=== PATIENT | female | born 1990 | race Caucasian/White ===

== ENCOUNTER 2020-07-12 03:36 | Emergency (ER) | payer OTHER, SELFPAY ==
[2020-07-12] VITALS (7 sets, daily range): BP systolic 114–129; BP diastolic 61–96; PULSE 72–105; RESP 16–18; TEMP 36.6–37.3; O2SAT 95–100
--- NOTE | ~2020-07-12 | XR_ITS ---
EXAMINATION: XR chest 1V portable EXAM DATE: 07/12/2020 04:59 INDICATION: Aspiration . TECHNIQUE: Portable AP frontal chest x-ray was obtained. There is no prior study for comparison. FINDINGS: The lungs are clear. There are no pleural effusions. The cardiomediastinal silhouette is within normal limits. There is no pneumothorax suspected. The bones and soft tissues are unremarkab le. IMPRESSION: Normal chest x-ray exam. Reviewed, dictated and finalized at location A. KING UNIT ASSEMBLER IMPRESSION: Normal chest x-ray exam.
--- NOTE | ~2020-07-12 | CT_ITS ---
EXAMINATION: CT brain wo con DATE: 07/12/2020 15:16 INDICATION: Confusion. Dizziness. TECHNIQUE: Computed tomography (CT) of the head was performed without intravenous contrast. The mA wa s adjusted according to patient size. Iterative reconstruction technique was employed. The dose-lengt h product was 605.33 mGy-cm. COMPARISON: None FINDINGS: There is no intracranial hemorrhage, acute infarction, or abnormal intracranial mass lesion . The ventricles are normal in size. The orbits are normal. The paranasal sinuses are clear. The mast oid air cells are normal. IMPRESSION: 1. Normal brain. Reviewed, dictated and finalized at location B. ECT MANAGER/TEAM COACH IMPRESSION: 1. Normal brain.
--- NOTE | 2020-07-12 03:45 | ECG_ITS ---
Measurements Intervals [place] Rate: 112 P: 73 VT: 161 QRS: 15 QRSD: 94 T: 39 QT: 343 QTc: 470 Interpretive Statements SINUS TACHYCARDIA LOW QRS VOLTAGE IN PRECORDIAL LEADS BASELINE ARTIFACT- I, II, III, AVR, AVL, AVF, V1-V3 ABNORMAL ECG Electronically Signed On 07-12-2020 8:30:12 ROLLER TURNER by Wilson Sanford D.O.
[2020-07-12] MEDS: NALOXONE HCL INJ 2 MG/2 ML AMP IV PUSH ×2 (04:00→04:05)
--- NOTE | 2020-07-12 04:07 | ED.GENADULT ---
HPI - General Adult General Chief complaint: Overdose Stated complaint: overdose Source: patient Mode of arrival: ambulatory Limitations: no limitations History of Present Illness HPI narrative: Phyllis is a 30F with a history of psychiatric issues and previous OD that was brought in by EMS for AMS/presumed OD. She was found on the ground not responding by her outside the bathroom and EMS was called. She was given 1 dose of narcan by BLS and then ALS was called which gave her another dose. She did perk up after the second dose. At that time she started looking at EMS and grunting. In the ED she is very rigid. When yelled at she will open her eyes and follow basic commands. No further history can be obtained. Related Data Home Medications Medication Instructions Recorded Confirmed alprazolam [Xanax] See Rx Instructions .ROUTE .COMPLEX 07/12/20 07/12/20 hydrocodone-acetaminophen [Bejou] See Rx Instructions .ROUTE .COMPLEX 07/12/20 07/12/20 lamotrigine [Lamictal] See Rx Instructions .ROUTE .COMPLEX 07/12/20 07/12/20 quetiapine [Seroquel] See Rx Instructions .ROUTE .COMPLEX 07/12/20 07/12/20 Allergies Allergy/AdvReac Type Severity Reaction Status Date / Time No Known Allergies Allergy Verified 07/12/20 04:26 Review of Systems Review of Systems: ROS unobtainable: Yes unobtainable due to mental status PMFSH Social History Social History Gender identity (if verbalized by the patient): Female Exam Const: General: confusion Limitations: behavioral limitations Other: Was lying in bed very rigid with her arms flexed grunting HENMT: Other: normocephalic. Had dried vomit around her mouth and in her hair. Eyes: Other: PERRL but were sluggish Neck: Other: normal to inspection Chest: Chest palpation & inspection: normal inspection of the chest Resp: Other: CTAB Cardio: Rate: regular rate Rhythm: regular rhythm Heart sounds: no murmurs GI: GI Palp: Yes Soft to palpation and No Guarding due to palpation present (GI) Auscultation: normal bowel sounds Urinary Catheter: Urinary Catheter: patent and draining Skin: General skin exam: normal color Rashes: no rashes Neuro: Other: Only responds with grunts. Is sitting up in bed very rigid with dystonic movements. Extrem: Other: Rigid extremities. Arms flexed at 90 degrees at the elbows. Psych: Other: Just grunting and noticibly agitated. Course Course Emergency Course: Phyllis was evaluated. She was given another dose of narcan with little change. She continued to open eyes, grunt when spoken to and follow some basic commands. Labs and CXR were ordered as well as a liter of LR. EKG showed sinus tachycardia at a rate of [address] elevation/depression or ectopy. Labs showed leukocytosis at 14.5, a UA c/w UTI, lactic acid of 4.1, CK of 292, and trop of 113.7. She was given a gm of ceftriaxone for the UTI. Fluids will continue for the lactic acid and it will be rechecked in 3 hours. I suspect the minimally elevated troponin is from the mild rhabdo/struggle and overdose. the trop will also be repeated. She was placed in an ER hold with a monitor for further observation. When her AMS resolves she may need a psych consult as it is not known if this was intentional. At 530 she continued to improve. She was saying a few words. She cussed at her and took a swing at him as he consented to our medical treatment. She did not want to stay but she could not voice enough words to show she was oriented much less show she understood the consequences of leaving. Care transferred to Dr. Givens at 0700. At this time she was screaming at nursing staff cussing and trying to climb out of bed. Vital Signs Vital signs: Vital Signs Temperature 98 F 07/12/20 04:18 Pulse Rate 102 H 07/12/20 04:18 Respiratory Rate 16 07/12/20 04:18 Blood Pressure 129/80 07/12/20 04:18 Pulse Oximetr
[2020-07-12] MEDS: LACTATED RINGERS 1,000 ML 1000 ML (04:10)
[2020-07-12 04:31] LABS: Base Excess ABG -6.2 mmol/L (0-2); HCO3 ABG 18.6 mmol/L (23-29); Oxygen Content ABG 17.1 %vol (16.0-22.0); Oxygen Saturation ABG 97.2 % (95-97); Oxyhemoglobin 94.6 % (94-100); PCO2 ABG 34.6 mmHg (35-45); PO2 ABG 94.6 mmHg (80-90); Total Hemoglobin 12.8 g/dL; pH ABG 7.35 (7.35-7.45)
[2020-07-12 04:34] LABS: Basophils Absolute Auto 0.04 K/mm3 (0.00-0.10); Basophils Percent Auto 0.3 % (0.0-1.0); Hematocrit 36.3 % (35.0-49.0); Hemoglobin 11.8 g/dL (12.0-15.0); Immature Granulocyte Absolute 0.29 K/mm3 (0.00-0.00); Lymphocytes Absolute Auto 0.88 K/mm3 (1.10-4.50); Lymphocytes Percent Auto 6.1 % (18.0-42.0); Mean Corpuscular HGB Conc 32.5 g/dL (32.0-36.0); Mean Corpuscular Hemoglobin 33.4 pg (27.0-31.0); Mean Corpuscular Volume 102.8 fL (78.0-102.0); Mean Platelet Volume 8.9 fl (9.2-11.8); Monocytes Absolute Auto 0.79 K/mm3 (0.10-0.90); Monocytes Percent Auto 5.5 % (2.0-11.0); Neutrophils Absolute Auto 12.5 K/mm3 (1.7-7.2); Neutrophils Percent Auto 86.1 % (50.0-70.0); Platelet Count Result 199 K/mm3 (150-420); Red Blood Count 3.53 M/mm3 (4.20-5.40); Red Cell Distribution Width 12.7 % (11.6-14.4); White Blood Count 14.5 K/mm3 (4.8-10.8)
[2020-07-12 04:39] LABS: Add Urine Microscopic? YES; Appearance Urine Clear (Clear); Bilirubin Urine Negative (Negative); Blood Urine 3+ (Negative); Color Urine Yellow (Yellow); Glucose Urine UA 1+ (Negative); Ketones Urine Negative (Negative); Leukocyte Esterase Ur Negative (Negative); Nitrate Urine Positive (Negative); Protein Urine Negative (Negative); Urobilinogen Urine 0.2 mg/dL (0.2-1.0)
[2020-07-12 04:41] LABS: Device ROOM AIR; Modified Allen's Test Pass; Site Drawn RIGHT RADIAL
[2020-07-12 04:45] LABS: Bacteria Urine 4+ /hpf; Pregnancy On Board Control Positive; Squamous Epithelial Cell Urine Rare /hpf (Few); Urine Pregnancy Test Negative; WBC Urine 0-3 /hpf (0-3)
[2020-07-12 04:46] LABS: Amphetamine Screen Urine Negative (Negative); Barbiturate Screen Urine Negative (Negative); Benzodiazepines Screen Urine Positive (Negative); Cannabinoid Screen Urine Positive (Negative); Cocaine Screen Urine Negative (Negative); Methadone Screen Urine Negative (Negative); Opiate Screen Urine Positive (Negative); Phencyclidine Screen Urine Negative (Negative)
[2020-07-12 04:47] LABS: INR 0.9; Prothrombin Time 10.3 Seconds (9.50-12.10)
[2020-07-12 04:52] LABS: Alanine Aminotransferase 34 U/L (14-59); Albumin Level 3.6 g/dL (3.4-5.0); Alkaline Phosphatase 69 U/L (46-116); Anion Gap 8 mmol/L (8-16); Aspartate Amino Transferase 40 U/L (15-37); Bilirubin,Total 0.1 mg/dL (0.00-1.00); Blood Urea Nitrogen 12 mg/dL (7-18); Calcium 7.8 mg/dL (8.5-10.1); Carbon Dioxide 27 mmol/L (21-32); Chloride 104 mmol/L (98-108); Creatine Kinase 292 U/L (26-192); Estimated CRCL calculation 77 ml/min; Estimated Glomerular Filt Rate > 60; Glucose 98 mg/dL (70-99); Lactic Acid Reflex 4.1 mmol/L (0.4-2.0); Lipase 36 U/L (73-393); Osmolality Calculated 287 mOsm/kg (285-295); Phosphorus 1.6 mg/dL (2.6-4.7); Potassium 3.8 mmol/L (3.5-5.1); Salicylate 3.8 mg/dL (2.8-20.0); Sodium 139 mmol/L (136-145); Total Protein 6.9 g/dL (6.4-8.2)
[2020-07-12 05:02] LABS: Ammonia < 10 umol/L (11-32)
[2020-07-12 05:03] LABS: Acetaminophen < 2 ug/mL (10-30); Ethanol < 3 mg/dL (0-6); Troponin I 113.7 ng/L (0.00-60.4)
[2020-07-12] MEDS: cefTRIAXone 1 GM VIAL IM (05:03)
--- NOTE | 2020-07-12 05:05 | PC.NURSE ---
spouse brought medications found 2mg xanax bars in prescription bottle of seroquel (not her prescription).
--- NOTE | 2020-07-12 06:10 | PC.NURSE ---
patient awake cussing, pulling off telemetry. Spouse trying to reason with patient.
--- NOTE | 2020-07-12 06:23 | PC.NURSE ---
report to Esme [facility], for patient to got room 206 for ER hold at 7AM
--- NOTE | 2020-07-12 06:39 | PC.NURSE ---
assumed care of pt, pt resting comfortably on stretcher sleeping.
--- NOTE | 2020-07-12 06:50 | PC.NURSE ---
Pt sitting up on stretcher, demanding to leave. pt slurred speech, confused and yelling at staff calling staff names.
--- NOTE | 2020-07-12 07:05 | PC.NURSE ---
Pt sister called to speak with pt. pt unable to figure out how to use the telephone properly to talk to her sister. pt looking around room for sister.
[2020-07-12 07:59] LABS: Lactic Acid Reflex 1.3 mmol/L (0.4-2.0)
[2020-07-12 08:02] LABS: Troponin I 114.3 ng/L (0.00-60.4)
--- NOTE | 2020-07-12 08:05 | PC.NURSE ---
Argumentative, wants her here to sit with her, advised unable to allow visitors due to covid 19 guidelines, cursing on the phone with , wanting to leave the hospital, ER notified
[2020-07-12] MEDS: SODIUM CHLORIDE 0.9% IV 1,000 ML 125 ML IV CONT ×2 (08:48→17:45)
[2020-07-12 12:56] LABS: Troponin I 53.2 ng/L (0.00-60.4)
--- NOTE | 2020-07-12 15:05 | PC.NURSE ---
patient taken down to xray to head CT done. Taken down via wheelchair.
--- NOTE | 2020-07-12 15:20 | PC.NURSE ---
Patient back to room from having CT. Patient ambulated to bathroom and back to bed. Gait slightly unsteady. Patient appears to be alert and oriented 2-3.
--- NOTE | 2020-07-12 20:44 | PC.NURSE ---
Patient's called. Patient unable to hold phone. required prompts to say hello. Fell asleep during conversation
--- NOTE | 2020-07-12 21:26 | PC.NURSE ---
Patient still on phone with . Sister called requesting to speak with doctor. Stated she did not care what rules were she was coming up to see her sister and no one could stop her . Sister also called Janis FRENCH to complain that she could not visit sister. Patient stated sister should not still be sleepy. Numerous nurses attempted to explain situation to sister,
--- NOTE | 2020-07-12 21:44 | PC.NURSE ---
Patient's called and stated patient said she was hot and thirsty. Also voiced concern patient was no longer one on one. Explained patient was no longer confused. Calm and more alert. Explained rules for visiting due to covid. also explained patient in eyesight of a nurse at all times. Sister took phone away form and began screaming at nurse. Discontinued call.
--- NOTE | 2020-07-12 23:44 | PC.NURSE ---
Patient's gait steadier. Appears to be more alert. Reoriented to time and place. Stated she did not know what happened. When reminded over overdose stated she was not trying to harm herself.
[2020-07-13] VITALS (7 sets, daily range): BP systolic 122–129; BP diastolic 70–89; PULSE 68–96; RESP 16–18; TEMP 36.6–37.5; O2SAT 98–100
--- NOTE | 2020-07-13 00:21 | PM.EVENT ---
Event Note Event Note Event Note: Evaluation of patient is more alert response to questions but a as soon as you leave the room she falls back asleep, currently in no acute distress reviewed her blood work and within normal limits and will have mental health evaluation when the patient is more lucid.
[2020-07-13] MEDS: SODIUM CHLORIDE 0.9% IV 1,000 ML 125 ML IV CONT ×2 (00:53→10:10)
--- NOTE | 2020-07-13 01:54 | PC.NURSE ---
Pt's ID interval is 0.16; QRS is 0.08. Pulse is 75 and pt is in sinus rhythm.
--- NOTE | 2020-07-13 01:55 | PC.NURSE ---
Patient oriented to self. Aware she is in the hospital-but named [facility]. Continues to deny recalling what happened. denies trying to hurt herself.
--- NOTE | 2020-07-13 06:42 | PC.NURSE ---
Dr. Givens called to get report on pt; New orders received and noted to contact [facility] for services.
--- NOTE | 2020-07-13 06:47 | PC.NURSE ---
[facility] dispatcher notified of request for [facility] services.
--- NOTE | 2020-07-13 06:54 | PC.NURSE ---
Jona the counselor from [facility] called; Report given to him and he requested that we call poison control first to clear pt for medical stability.
--- NOTE | 2020-07-13 07:42 | PC.NURSE ---
Poison control notified per [facility]. Art, the poison control community health program representative, reviewed the case and cleared pt for medical stability. Case # [id number] was assigned to her case.
--- NOTE | 2020-07-13 07:49 | PC.NURSE ---
Jona, from [facility] was notified of pt being medically cleared by poison control. He said a counselor would be out around [phone] this AM.
--- NOTE | 2020-07-13 08:59 | ECG_ITS ---
Measurements Intervals [place] Rate: 60 P: 75 ND: 117 QRS: 51 QRSD: 88 T: 33 QT: 414 QTc: 416 Interpretive Statements SINUS RHYTHM WITH SHORT ND INTERVAL INCOMPLETE RIGHT BUNDLE BRANCH BLOCK BORDERLINE ECG Electronically Signed On 07-13-2020 9:33:47 [employer] PARTS MANAGER by Wilson Sanford D.O.
--- NOTE | 2020-07-13 09:15 | PC.NURSE ---
Dr Villegas here in to see patient
--- NOTE | 2020-07-13 11:25 | PC.NURSE ---
[facility] worker here to speak with/evaluate patient.
[2020-07-13 12:00] LABS: Basophils Absolute Auto 0.01 K/mm3 (0.00-0.10); Basophils Percent Auto 0.1 % (0.0-1.0); Eosinophils Absolute Auto 0.01 K/mm3 (0.02-0.50); Eosinophils Percent Auto 0.1 % (1.0-6.0); Hematocrit 33.7 % (35.0-49.0); Hemoglobin 10.2 g/dL (12.0-15.0); Immature Granulocyte Absolute 0.08 K/mm3 (0.00-0.00); Immature Granulocyte Percent A 0.9 % (0.0-0.0); Lymphocytes Absolute Auto 0.43 K/mm3 (1.10-4.50); Lymphocytes Percent Auto 5.1 % (18.0-42.0); Mean Corpuscular HGB Conc 30.3 g/dL (32.0-36.0); Mean Corpuscular Hemoglobin 25.9 pg (27.0-31.0); Mean Corpuscular Volume 85.5 fL (78.0-102.0); Monocytes Absolute Auto 0.46 K/mm3 (0.10-0.90); Monocytes Percent Auto 5.4 % (2.0-11.0); Neutrophils Absolute Auto 7.5 K/mm3 (1.7-7.2); Neutrophils Percent Auto 88.4 % (50.0-70.0); Platelet Count Result 436 K/mm3 (150-420); Red Blood Count 3.94 M/mm3 (4.20-5.40); Red Cell Distribution Width 14.6 % (11.6-14.4); White Blood Count 8.5 K/mm3 (4.8-10.8)
--- NOTE | 2020-07-13 12:05 | PC.NURSE ---
Patient appears restless. this nurse walked with patient around floor x1. Patients gait steady. Able to state her name,birthday, month and that she was in the hospital. Patient back to room, sitting up in recliner. Call light and belongings provided.
[2020-07-13 12:14] LABS: Anion Gap 11 mmol/L (8-16); Blood Urea Nitrogen 4 mg/dL (7-18); Calcium 8.5 mg/dL (8.5-10.1); Carbon Dioxide 23 mmol/L (21-32); Chloride 104 mmol/L (98-108); Estimated CRCL calculation 93 ml/min; Estimated Glomerular Filt Rate > 60; Glucose 94 mg/dL (70-99); Osmolality Calculated 282 mOsm/kg (285-295); Potassium 3.8 mmol/L (3.5-5.1); Sodium 138 mmol/L (136-145)
--- NOTE | 2020-07-13 15:45 | PC.NURSE ---
Nurse attempting to get patient to eat something so patient can be discharged. Patient aware that once she eats she can be discharged home. Patient stating she does not like anything we have here. Patient provided with soup and popsicle. Patient sitting up in chair currently attempting to eat something.
--- NOTE | 2020-07-13 16:16 | PM.EVENT ---
Event Note Event Note Event Note: Patient has repeatedly told me that she is not suicidal. At present the legs he complains of his some mild nausea and that she feels cold . Patient states that she has ready to go home. Patient states that she has no appetite but has managed to take some broth and other liquids without problem. Alert and oriented x2. JEANNETTE, EOMI. Mucous membranes moist. Regular rate and rhythm without murmur rub or gallop. Distal pulses are full and symmetric. Extremities are warm. Lungs are clear to auscultation without rales rhonchi or wheezes. Abdomen is soft and nontender. No distention. Extremities are warm dry and pink. Patient ambulates the hallways without difficulty. She was screened by [facility] and released for home discharge. We will give her some literature regarding drug treatment.
--- NOTE | 2020-07-13 16:20 | PC.NURSE ---
MD here to see patient. Patient to be discharged.
--- NOTE | 2020-07-13 16:33 | PC.NURSE ---
, Vamsi, notified of discharge. Vamsi to bring clothes for patient to be discharged in.
--- NOTE | 2020-07-13 18:00 | PC.NURSE ---
Patient to be discharged home. All discharged instructions and education reviewed with patient and patients . Several resources provided about substance abuse and getting help. Patient and state understanding. IV site removed, tip intact, dressing applied to site. Patient accompanied to front door by this nurse, patient ambulatory. Left via private vehicle with .
[2020-07-16 09:23] LABS: Lamotrigine Lamictal <0.5 mcg/mL (4.0-18.0)
== END 2020-07-13 18:00 | disposition home or self-care (01) ==
LOC: CHSED 07:35 → CHS2ND 07:59
PROVIDERS: Emergency Medicine; Family Medicine; Emergency Provider Emergency Medicine
DX: T50.901A Poisoning by unspecified drugs, medicaments and biological substances, accidental (unintentional), initial encounter (principal)
CPT/HCPCS: 36415; 36600; 70450; 71045; 80048; 80053; 80175; 80307; 81001; 81025; 82140; 82550; 82805; 83605; 83690; 83735; 84100; 84484; 85025; 85610; 93005; 96361; 96372; 96374; 99284; J0696; J2310; J7030; J7120